=== PATIENT | female | born 1965 | race Two or more races ===

== ENCOUNTER 2019-02-07 18:04 | Emergency (ER) | payer OTHER ==
[~2019-02-07] VITALS: Ht 170.2 cm; Wt 72.6 kg
[~2019-02-07 18:04] MED LIST: DILTIAZEM 24HR120 MG; TOPROL XL50 MG PO
[2019-02-07] MEDS ORDERED: TOPROL XL50 M1 (19:51)
== END 2019-02-07 22:45 | disposition home or self-care (01) ==
LOC: ER 18:04
DX: G44.209 Tension-type headache, unspecified, not intractable (principal)

== ENCOUNTER 2020-02-12 13:11 | Emergency (ER) | payer OTHER ==
[~2020-02-12] VITALS: Ht 170.2 cm; Wt 70.8 kg
[~2020-02-12 13:11] MED LIST changes: +TOPROL XL50 M1
== END 2020-02-12 18:57 | disposition home or self-care (01) ==
LOC: ER 13:11
DX: K52.9 Noninfective gastroenteritis and colitis, unspecified (principal); E87.6 Hypokalemia; G44.209 Tension-type headache, unspecified, not intractable

== ENCOUNTER 2020-12-26 23:48 | Emergency (ER) | payer OTHER ==
[~2020-12-26] VITALS: Ht 167.6 cm; Wt 76.7 kg
== END 2020-12-27 15:27 | disposition home or self-care (01) ==
LOC: ER 23:48
DX: M79.661 Pain in right lower leg (principal)

== ENCOUNTER 2023-10-27 15:45 | Emergency (ER) | payer OTHER ==
[~2023-10-27] VITALS: Ht 167.6 cm; Wt 79.4 kg
[2023-10-27] MEDS ORDERED: METOCLOPRAMIDE HCL 5 MG/ML VIAL IM STA (19:35)
[2023-10-27] MEDS ORDERED: 0.9 % SODIUM CHLORIDE 1,000 ML IV STA (19:37)
[2023-10-27] MEDS ORDERED: ONDANSETRON HCL 2 MG/ML VIAL IV STA ×2 (19:37→21:56)
[2023-10-27] MEDS ORDERED: FAMOTIDINE/PF 20 MG/2 ML VIAL IV PUSH STA (19:38)
[2023-10-27] MEDS ORDERED: LOPERAMIDE HCL 2 MG CAPSULE PO STA (19:38)
[2023-10-27] MEDS ORDERED: HYOSCYAMINE SULFATE 0.125 MG TAB.SUBL SL ONE (19:45)
[2023-10-27 21:00] LABS: HEMATOCRIT 39.4 % (36.0-45.00); HEMOGLOBIN 13.7 g/dL (12.0-15.00); MEAN CORPUSCULAR HEMOGLOBIN 29.9 pg (27.00-32.0); MEAN CORPUSCULAR HGB CONC 34.7 g/dl (32.0-36.0); PLATELET COUNT 363 K/uL (150-450); RED BLOOD COUNT 4.58 M/uL (4.00-6.00); RED CELL DISTRIBUTION WIDTH 13.5 % (11.5-14.5)
[2023-10-27 21:19] LABS: CALCIUM 9.7 mg/dL (8.5-10.1); CREATININE SERUM 0.94 mg/dL (0.55-1.02); GFR 61.6; POTASSIUM 4.4 mEq/L (3.5-5.1)
== END 2023-10-27 23:32 | disposition home or self-care (01) ==
LOC: ER 15:46
DX: K52.9 Noninfective gastroenteritis and colitis, unspecified (principal); R11.10 Vomiting, unspecified; Z88.1 Allergy status to other antibiotic agents